=== PATIENT | female | born 1930 | race Caucasian/White ===

== ENCOUNTER 2016-12-08 14:23 | Inpatient (IN) | payer OTHER, MEDICARE ==
[~2016-12-08] VITALS: Ht 162.6 cm; Wt 55.4 kg
[2016-12-08] VITALS (8 sets, daily range): BP systolic 101–135; BP diastolic 68–97; PULSE 88–127; RESP 18; TEMP 97.7–98.3; O2SAT 93–95
[~2016-12-08 14:23] MED LIST: ASPI81TA82 PO; FERR325C PO; FLUO20CA12 PO; FLUT1INH; FURO10S PO; FURO20TA PO; GLUCTAB PO; LEVO50TA4 PO; LEVO75TA3 PO; LIOT5 PO; LOSA100T PO; LOSA100T3 PO; METF500T PO; METO25 PO; METO25TA3 PO; POTA8TAB PO; PRAV20 PO; PRAV20TA2 PO; TIOT12.9 INH; XARE15TA PO
[2016-12-08] MEDS ORDERED: SENNOSIDES 8.6 MG TAB PO PRN (15:00)
[2016-12-08] MEDS ORDERED: MAGNESIUM HYDROXIDE SUSP 30 ML CUP PO PRN (15:00)
[2016-12-08] MEDS ORDERED: BISACODYL 10 MG SUPP RECTAL PRN (15:00)
[2016-12-08] MEDS ORDERED: NALOXONE HCL 0.4 MG/ML AMP IV PUSH PRN (15:00)
[2016-12-08] MEDS ORDERED: LACTULOSE SYRUP 20 GM/30 ML CUP PO PRN (15:00)
[2016-12-08] MEDS ORDERED: ACETAMINOPHEN 325 MG TAB PO PRN (15:00)
[2016-12-08] MEDS ORDERED: SODIUM CHLORIDE 0.9% FLUSH 10 ML FLUSH IV FLUSH PRN (15:00)
--- NOTE | 2016-12-08 16:32 | HHI.HP ---
[facility] Physician Gracie Uribe Admission Diagnosis Diagnoses: Chief Complaint: Back pain, A. fib Travel History International Travel<30 Days: No Contact w/Intl Traveler <30 Da: No History of Present Illness Written by Guanaco Cruz, acting as scribe for Dr. Rowland on 12/08/16 at 16:32. This note was transcribed by scribe Guanaco Cruz PA-C. I, Dr. Ruslan Rowland personally performed the history, physical exam, and medical decision making; and confirmed the accuracy of the information in the transcribed note. Authenticated by Dr. Ruslan Rowland on 12/09/16 at 00:06. 86-year-old female with past medical history of A. fib, CHF, HLD, HTN, hypothyroidism, DM, COPD who presented with back pain. The patient states she presented for left back and leg pain. She says she has been having a dry cough for 2 weeks. She states the past 2 weeks as well she's been having sciatica. She states she is having pain in her left lower right that radiates into her left thigh and stops at her knee. The pain is exacerbated by sitting. She has been taking Tylenol 3 for pain with minimal relief. She denies any numbness, tingling, weakness of her extremities. She denies any urinary or fecal incontinence. She presented to the ED with these symptoms and was found to have A. fib with RVR and was admitted. She does follow with cardiology/ electrophysiology Dr. Tay in [place]. She failed cardioversion last year and the plan was for ablation but there are complications and this was not able to be completed. The patient denies any chest pain, shortness of breath, palpitations. He hasn't had any fever, chills. She denies any leg swelling. She has been compliant with her medications including in particular her Xarelto. Review of Systems Except as stated in HPI: all other systems reviewed are Neg Past Family Social History Past Medical History Congestive heart failure, systolic, EF 30% per patient Atrial fibrillation Diabetes mellitus, most recent A1c 6.0 per patient Hyperlipidemia Hypertension Emphysema and chronic bronchitis Hypothyroidism Past Surgical History Pacemaker/AICD placement Femur fracture repair Bilateral cataract surgery Hemorrhoidectomy Reported Medications Reported Meds & Active Scripts Active Reported Iron (Ferrous Sulfate) 325 Mg Cap 325 Mg PO DAILY Metformin (Metformin HCl) 500 Mg Tab 500 Mg PO DAILY With a meal Spiriva Respimat Inh (Tiotropium Inh) 2.5 Mcg/Act Aero 2 Puff INH DAILY 2.5 mcg = 1 inhalation Pravastatin 20 Mg Tab 20 Mg PO DAILY Metoprolol Tartrate 25 Mg Tab 25 Mg PO BID Losartan (Losartan Potassium) 100 Mg Tab 100 Mg PO DAILY Levothyroxine (Levothyroxine Sodium) 50 Mcg Tab 50 Mcg PO DAILY Potassium Chloride ER (Potassium Chloride) 8 Meq Tab 8 Meq PO BID Furosemide 20 Mg Tab 20 Mg PO BID Fluoxetine (Fluoxetine HCl) 20 Mg Capsule 20 Mg PO DAILY Xarelto (Rivaroxaban) 15 Mg Tab 15 Mg PO DAILY Allergies: Coded Allergies: simvastatin (Verified Adverse Reaction, Severe, Cramping, 12/08/16) SEVERE LEG CRAMPING SAUNDRA Inhibitors (Verified Adverse Reaction, Unknown, Cough, 12/08/16) PT STS CHRONIC PERSISTENT COUGH amiodarone (Verified Adverse Reaction, Unknown, Nausea/Vomiting, 12/08/16) VOMITING,HAIR LOSS, ELEVATED LIVER ENZYMES PER PT digoxin (Verified Adverse Reaction, Unknown, Appetite Changes(/Dec), ) LOSS OF APPETITE, SEVERE WEIGHT LOSS PER PT dronedarone (Verified Adverse Reaction, Unknown, Shortness of Breath, ) SEVERE EXACERBATION OF CHF PER PT Active Ordered Medications Current Medications Medications (Trade) Dose Ordered Sig/Eulalia Route Start Time Stop Time Status Last Admin (NS Flush) 2 ml UNSCH PRN IV FLUSH 12/08/16 15:00 (NS Flush) 2 ml BID IV FLUSH 12/08/16 21:00 (Tylenol) 650 mg Q4H PRN PO 12/08/16 15:00 (Narcan Inj) 0.4 mg UNSCH PRN IV PUSH 12/08/16 15:00 (Milk Of Magnesia Liq) 30 ml Q12H PRN PO 12/08/16 15:00 (Senokot) 17.2 mg Q12H PRN PO 12/08/16 15:00 (Dulcolax Supp) 10 mg DAILY PRN RECTAL 12/08/16 15:00 (Lactulose Liq) 30 ml DAILY PRN PO 12/08/16 15:00 (PROzac) 20 mg DAILY PO 12/09/16 09:00 (Lasix) 20 mg BID PO 12/08/16 21:00 (Synthroid) 50 mcg DAILY@0600 PO 12/09/16 06:00 (Cozaar) 100 mg DAILY PO 12/09/16 09:00 (Lopressor) 25 mg BID PO 12/08/16 21:00 (KCl) 8 meq BID PO 12/08/16 21:00 (Pravachol) 20 mg DAILY PO 12/09/16 09:00 (Xarelto) 15 mg DAILY PO 12/09/16 09:00 (Ferrous Sulfate) 325 mg DAILY PO 12/09/16 09:00 Family History Father had a heart attack at age 76 Social History Quit smoking 30 years ago One glass of wine nightly Physical Exam Physical Exam GENERAL: Well-developed well-nourished. In no acute distress. SKIN: Warm and dry. No lesions noted. HEENT: Normocephalic. Pupils equal and round. Mucous membranes pink and moist. CARDIOVASCULAR: Irregular rate and rhythm. No murmur appreciated. RESPIRATORY: No accessory muscle use. Clear to auscultation. Breath sounds equal bilaterally. GASTROINTESTINAL: Abdomen soft, non-tender, nondistended. Bowel sounds x4. MUSCULOSKELETAL: No obvious deformities. No clubbing or cyanosis. No edema. No calf swelling noted. Some right calf tenderness to palpation. NEUROLOGICAL: Awake and alert. Moves upper and lower extremities spontaneously. Normal speech. PSYCHIATRIC: Appropriate mood and affect; insight and judgment normal. Caprini VTE Risk Assessment Caprini VTE Risk Assessment: Mod/High Risk (score >= 2) Caprini Risk Assessment Model Point Value = 1 Point Value = 2 Point Value = 3 Point Value = 5 Age 41-60 Minor surgery BMI > 25 kg/m2 Swollen legs Varicose veins or History of unexplained or recurrent spontaneous Oral contraceptives or hormone replacement Sepsis (< 1 month) Serious lung disease, including pneumonia (< 1 month) Abnormal pulmonary function Acute myocardial infarction Congestive heart failure (< 1 month) History of inflammatory bowel disease Medical patient at bed rest Age 61-74 Arthroscopic surgery Major open surgery (> 45 min) Laparoscopic surgery (> 45 min) Malignancy Confined to bed (> 72 hours) Immobilizing plaster cast Central venous access Age >= 75 History of VTE Family history of VTE Factor V Leiden Prothrombin [id number] Lupus anticoagulant Anticardiolipin antibodies Elevated serum homocysteine Heparin-induced thrombocytopenia Other congenital or acquired thrombophilia Stroke (< 1 month) Elective arthroplasty Hip, pelvis, or leg fracture Acute spinal cord injury (< 1 month) Prophylaxis Regimen Total Risk Factor Score Risk Level Prophylaxis Regimen 0-1 Low Early ambulation 2 Moderate Order ONE of the following: *Sequential Compression Device (SCD) *Heparin 5000 units SQ BID 3-4 Higher Order ONE of the following medications: *Heparin 5000 units SQ TID *Enoxaparin/Lovenox 40 mg SQ daily (WT < 150 kg, CrCl > 30 mL/min) *Enoxaparin/Lovenox 30 mg SQ daily (WT < 150 kg, CrCl > 10-29 mL/min) *Enoxaparin/Lovenox 30 mg SQ BID (WT < 150 kg, CrCl > 30 mL/min) AND/OR *Sequential Compression Device (SCD) 5 or more Highest Order ONE of the following medications: *Heparin 5000 units SQ TID (Preferred with Epidurals) *Enoxaparin/Lovenox 40 mg SQ daily (WT < 150 kg, CrCl > 30 mL/min) *Enoxaparin/Lovenox 30 mg SQ daily (WT < 150 kg, CrCl > 10-29 mL/min) *Enoxaparin/Lovenox 30 mg SQ BID (WT < 150 kg, CrCl > 30 mL/min) AND *Sequential Compression Device (SCD) Assessment and Plan Assessment and Plan 86-year-old female with past medical history of A. fib, CHF, HLD, HTN, hypothyroidism, DM, COPD who presented with back pain A. fib with RVR: Heart rate currently 120's on monitor. Asymptomatic. -Resume home metoprolol -Add oral Cardizem and consider Cardizem drip if not improved -Monitor on telemetry -Continue Xarelto Sciatica: Acute on chronic. -[place] and IV morphine as needed for pain -Trial of Flexeril -Heating pad -PT consult Elevated d-dimer: Nonspecific. On anticoagulation with Xarelto. -With some calf tenderness will check lower extremity ultrasound Doppler CKD stage III: Creatinine 1.5, previously 1.56 on 12/19/14. -Currently stable. Monitor. Diabetes mellitus: -Hold home metformin -Monitor Accu-Cheks and cover with SSI if needed Chronic systolic CHF: EF 30% per patient. S/P AICD. -Continue home metoprolol, Lasix, potassium supplement Other chronic medical conditions include hypothyroidism, COPD, depression, iron deficiency, hyperlipidemia: Stable at this time and will continue home medications as indicated DVT prophylaxis: On Xarelto Discussed Condition With Patient, RN, ED staff Guanaco Cruz Dec 08, 2016 16:32 Mariana Rowland DO Dec 09, 2016 00:06
[2016-12-08] MEDS ORDERED: MORPHINE SULFATE 2 MG/ML INJ IV PUSH PRN (16:45)
[2016-12-08] MEDS ORDERED: DEXTROSE 50% IN WATER 50 ML VIAL(D50) IV PUSH PRN (16:45)
[2016-12-08] MEDS ORDERED: GLUCAGON 1 MG/ML VIAL OTHER PRN (16:45)
[2016-12-08] MEDS: INSULIN ASPART SUPPLEMENTAL SCALE SQ SCH ×2 (17:00→20:11)
[2016-12-08] MEDS ORDERED: PILL SPLITTER OTHER PRN (17:15)
[2016-12-08] MEDS: DILTIAZEM HCL 30 MG TAB PO SCH ×2 (18:19→20:05)
[2016-12-08] MEDS: ACETAMINOPHEN/HYDROcodone 325 MG/5 MG TAB PO PRN (18:19)
[2016-12-08] MEDS: CYCLOBENZAPRINE HCL 10 MG TAB PO SCH (20:05)
[2016-12-08] MEDS: FUROSEMIDE 20 MG TAB PO SCH (20:05)
[2016-12-08] MEDS: SODIUM CHLORIDE 0.9% FLUSH 10 ML FLUSH IV FLUSH SCH (20:06)
[2016-12-08] MEDS: METOPROLOL TARTRATE 25 MG TAB PO SCH (20:06)
[2016-12-08] MEDS: POTASSIUM CHLORIDE 8 MEQ CONTROLLED RELEASE TAB PO SCH (20:08)
--- NOTE | 2016-12-08 22:04 | RADRPT ---
EXAM DATE/TIME: 12/08/2016 21:03 [facility] COMPARISON: No previous studies available for comparison. INDICATIONS : Bilateral leg swelling. MEDICAL HISTORY : Congestive heart failure. Hypercholesterolemia. Hypertension. Glasses. Neck pain. Atrial fibrillation . COPD. Dyspnea. Urinary tract infection. Arthritis. Diabetes. SURGICAL HISTORY : Tonsillectomy.Pacemaker. Bilateral cataract surgery. Femur fracture repair. ENCOUNTER: Initial ACUITY: 1 day PAIN SCORE: 3/10 LOCATION: Bilateral legs. TECHNIQUE: Venous ultrasound of the left and right leg was performed from the inguinal ligament to the proximal calf. Real-time, color Doppler and spectral tracing, compression and augmentation techniques were us ed. FINDINGS: RIGHT LEG: There is normal compressibility of the deep venous system from the inguinal region to the proximal ca lf. No echogenic clot is seen in the lumen of the common femoral, femoral, popliteal, and posterior tibial veins. There is a normal response of the venous system to proximal and distal augmentation an d respiration. LEFT LEG: There is normal compressibility of the deep venous system from the inguinal region to the proximal ca lf. No echogenic clot is seen in the lumen of the common femoral, femoral, popliteal, and posterior tibial veins. There is a normal response of the venous system to proximal and distal augmentation an d respiration. CONCLUSION: Normal examination. Oliverio Bryan MD on December 08, 2016 at 22:02 Board Certified Radiologist. This report was verified electronically.
[2016-12-09] VITALS (27 sets, daily range): BP systolic 95–116; BP diastolic 64–68; PULSE 72–105; RESP 16–18; TEMP 98–98.4; O2SAT 91–99
[2016-12-09] MEDS: ACETAMINOPHEN/HYDROcodone 325 MG/5 MG TAB PO PRN ×3 (04:50→23:08)
[2016-12-09] MEDS: LEVOTHYROXINE SODIUM 50 MCG TAB PO SCH (04:50)
[2016-12-09] MEDS: INSULIN ASPART SUPPLEMENTAL SCALE SQ SCH ×4 (08:00→21:00)
[2016-12-09] MEDS ORDERED: NON-FORMULARY DRUG (Ferrous Sulfate (Iron) 325 MG) PO SCH (09:00)
[2016-12-09] MEDS: RIVAROXABAN 15 MG TAB PO SCH (09:12)
[2016-12-09] MEDS: FERROUS SULFATE 325 MG (65 MG ELEMENTAL IRON) TAB PO SCH (09:12)
[2016-12-09] MEDS: SODIUM CHLORIDE 0.9% FLUSH 10 ML FLUSH IV FLUSH SCH ×2 (09:12→23:11)
[2016-12-09] MEDS: FUROSEMIDE 20 MG TAB PO SCH ×2 (09:13→23:10)
[2016-12-09] MEDS: POTASSIUM CHLORIDE 8 MEQ CONTROLLED RELEASE TAB PO SCH ×2 (09:13→23:09)
[2016-12-09] MEDS: PRAVASTATIN SOD 20 MG TAB PO SCH (09:13)
[2016-12-09] MEDS: LOSARTAN 50 MG TAB PO SCH (09:14)
[2016-12-09] MEDS: DILTIAZEM HCL 30 MG TAB PO SCH ×4 (09:14→23:11)
[2016-12-09] MEDS: METOPROLOL TARTRATE 25 MG TAB PO SCH ×2 (09:14→23:09)
[2016-12-09] MEDS: FLUoxetine HCL 20 MG CAP PO SCH (09:14)
[2016-12-09] MEDS: CYCLOBENZAPRINE HCL 10 MG TAB PO SCH ×2 (09:15→23:06)
[2016-12-09] MEDS ORDERED: INFLUENZA VIRUS VACCINE (QUADRIVALENT) 0.5 ML SYR IM ONE (10:00)
--- NOTE | 2016-12-09 12:16 | HHI.PR ---
Subjective Remarks Follow-up for atrial fibrillation, low back pain radiating to the left lower extremity. Patient is currently doing well, resting in bed. Denies any chest pain, shortness of breath, fever or chills. She still has low back pain. Objective Vitals Vital Signs Date Time Temp Pulse Resp B/P (MAP) Pulse Ox O2 Delivery O2 Flow Rate FiO2 12/09/16 11:00 79 12/09/16 10:00 92 12/09/16 09:00 84 12/09/16 08:46 91 17 116/68 (84) 97 12/09/16 08:00 80 12/09/16 08:00 Room Air 12/09/16 07:18 90 12/09/16 06:00 80 12/09/16 05:00 83 12/09/16 04:00 98.0 81 18 105/66 (79) 95 12/09/16 04:00 81 12/09/16 04:00 Room Air 12/09/16 03:00 87 12/09/16 02:00 92 12/09/16 01:00 87 12/09/16 00:00 98.3 90 18 109/67 (81) 95 12/09/16 00:00 90 12/09/16 00:00 Room Air 12/08/16 23:00 88 12/08/16 22:00 111 12/08/16 21:00 98 12/08/16 20:00 97.9 124 18 101/68 (79) 93 12/08/16 20:00 Room Air 12/08/16 20:00 124 12/08/16 18:22 97.7 123 18 126/86 (99) 95 12/08/16 18:00 127 12/08/16 17:00 118 12/08/16 16:30 98.3 115 18 135/97 (110) 95 I/O 12/08/16 12/08/16 12/08/16 12/09/16 12/09/16 12/09/16 07:00 15:00 23:00 07:00 15:00 23:00 Intake Total 480 ml Output Total 700 ml Balance -220 ml Intake Oral 480 ml Output Urine Total 700 ml # Bowel Movements 0 Imaging Last Impressions Lower Extremity Ultrasound 12/08/16 0000 Signed Impressions: Service Date/Time: Thursday, December 08, 2016 21:03 - CONCLUSION: Normal examination. Oliverio Bryan MD Objective Remarks GENERAL: Alert, oriented 3, NAD. SKIN: Warm and dry. HEAD: Normocephalic. EYES: No scleral icterus. No injection or drainage. NECK: Supple, trachea midline. No JVD or lymphadenopathy. CARDIOVASCULAR: Regular rate and rhythm without murmurs, gallops, or rubs. RESPIRATORY: Breath sounds equal bilaterally. No accessory muscle use. GASTROINTESTINAL: Abdomen soft, non-tender, nondistended. MUSCULOSKELETAL: No cyanosis, or edema. BACK: Nontender without obvious deformity. No CVA tenderness. Procedures None A/P Problem List: (1) Sciatica of left side ICD Code: M54.32 - Sciatica, left side (2) Atrial fibrillation ICD Code: I48.91 - Unspecified atrial fibrillation (3) Chronic systolic CHF (congestive heart failure) ICD Code: I50.22 - Chronic systolic (congestive) heart failure (4) Diabetes mellitus ICD Code: E11.9 - Type 2 diabetes mellitus without complications (5) CKD (chronic kidney disease) stage 3, GFR 30-59 ml/min ICD Code: N18.3 - Chronic kidney disease, stage 3 (moderate) Assessment and Plan 86-year-old female with past medical history of A. fib, CHF, HLD, HTN, hypothyroidism, DM, COPD who presented with back pain A. fib with RVR -Resume home metoprolol -Added oral Cardizem and consider Cardizem drip if not improved -Will switch to long acting Cardizem tomorrow morning. -Monitor on telemetry. Heart rate better controlled today. -Continue Xarelto Sciatica: Acute on chronic. -[place] and IV morphine as needed for pain -Trial of Flexeril -Heating pad -PT consult Elevated d-dimer: Nonspecific. On anticoagulation with Xarelto. -Patient had some calf tenderness. Lower extremity ultrasound negative for DVT. CKD stage III: Creatinine 1.5, previously 1.56 on 12/19/14. Diabetes mellitus: -Hold home metformin -Monitor Accu-Cheks and cover with SSI if needed Chronic systolic CHF: EF 30% per patient. S/P AICD. -Continue home metoprolol, Lasix, potassium supplement Full code. Xarelto. Discharge plan: Depending on PT input, will consider discharging patient on to SNF vs. Home with home health. Mariana Rowland DO Dec 09, 2016 12:16 pm
[2016-12-09] MEDS ORDERED: WALKER WHEELS/F1 MIS (23:34)
[2016-12-10] VITALS (18 sets, daily range): BP systolic 100–131; BP diastolic 58–88; PULSE 80–97; RESP 17–21; TEMP 97.4–98.6; O2SAT 90–97
[2016-12-10] MEDS: LEVOTHYROXINE SODIUM 50 MCG TAB PO SCH (05:49)
[2016-12-10] MEDS: ACETAMINOPHEN/HYDROcodone 325 MG/5 MG TAB PO PRN (05:50)
[2016-12-10] MEDS: INSULIN ASPART SUPPLEMENTAL SCALE SQ SCH ×5 (09:08→21:00)
[2016-12-10] MEDS: LOSARTAN 50 MG TAB PO SCH (09:09)
[2016-12-10] MEDS: DILTIAZEM-CD 120 MG CAP ER PO SCH (09:09)
[2016-12-10] MEDS: FERROUS SULFATE 325 MG (65 MG ELEMENTAL IRON) TAB PO SCH (09:09)
[2016-12-10] MEDS: RIVAROXABAN 15 MG TAB PO SCH (09:09)
[2016-12-10] MEDS: METOPROLOL TARTRATE 25 MG TAB PO SCH ×2 (09:09→22:57)
[2016-12-10] MEDS: FLUoxetine HCL 20 MG CAP PO SCH (09:09)
[2016-12-10] MEDS: FUROSEMIDE 20 MG TAB PO SCH ×2 (09:09→22:58)
[2016-12-10] MEDS: PRAVASTATIN SOD 20 MG TAB PO SCH (09:09)
[2016-12-10] MEDS: SODIUM CHLORIDE 0.9% FLUSH 10 ML FLUSH IV FLUSH SCH ×2 (09:10→21:00)
[2016-12-10] MEDS: POTASSIUM CHLORIDE 8 MEQ CONTROLLED RELEASE TAB PO SCH ×2 (09:10→22:58)
[2016-12-10] MEDS: CYCLOBENZAPRINE HCL 10 MG TAB PO SCH ×2 (09:10→22:58)
--- NOTE | 2016-12-10 10:02 | HHI.PR ---
Subjective Remarks Follow-up for atrial fibrillation, low back pain radiating to the left lower extremity. Patient is doing well. She has persistent sciatica pain. Would like to consider getting steroid injection. Objective Vitals Vital Signs Date Time Temp Pulse Resp B/P (MAP) Pulse Ox O2 Delivery O2 Flow Rate FiO2 12/10/16 08:00 80 12/10/16 07:40 Room Air 12/10/16 07:40 18 12/10/16 07:00 80 12/10/16 04:36 98.6 80 17 105/67 (80) 90 12/10/16 03:00 80 12/10/16 02:00 80 12/10/16 01:00 80 12/10/16 00:00 98.4 92 17 122/88 (99) 91 12/10/16 00:00 84 12/09/16 23:00 96 12/09/16 22:00 80 12/09/16 21:00 80 12/09/16 20:20 91 Room Air 12/09/16 20:16 98.4 105 17 95/64 (74) 91 12/09/16 20:00 82 12/09/16 19:00 72 12/09/16 18:00 80 12/09/16 17:00 84 12/09/16 16:02 98.3 78 17 109/65 (80) 96 12/09/16 16:00 82 12/09/16 15:00 80 12/09/16 14:00 82 12/09/16 13:00 84 12/09/16 12:00 82 12/09/16 12:00 98.2 79 16 104/67 (79) 99 12/09/16 11:00 79 I/O 12/09/16 12/09/16 12/09/16 12/10/16 12/10/16 12/10/16 07:00 15:00 23:00 07:00 15:00 23:00 Intake Total 480 ml 700 ml 720 ml Output Total 700 ml 1000 ml 680 ml Balance -220 ml -300 ml 40 ml Intake Oral 480 ml 700 ml 720 ml Output Urine Total 700 ml 1000 ml 680 ml # Bowel Movements 0 0 Imaging Last Impressions Lower Extremity Ultrasound 12/08/16 0000 Signed Impressions: Service Date/Time: Thursday, December 08, 2016 21:03 - CONCLUSION: Normal examination. Oliverio Bryan MD Objective Remarks GENERAL: Alert, oriented 3, NAD. SKIN: Warm and dry. HEAD: Normocephalic. EYES: No scleral icterus. No injection or drainage. NECK: Supple, trachea midline. No JVD or lymphadenopathy. CARDIOVASCULAR: Regular rate and rhythm without murmurs, gallops, or rubs. RESPIRATORY: Breath sounds equal bilaterally. No accessory muscle use. GASTROINTESTINAL: Abdomen soft, non-tender, nondistended. MUSCULOSKELETAL: No cyanosis, or edema. BACK: Nontender without obvious deformity. No CVA tenderness. Procedures None A/P Problem List: (1) Sciatica of left side ICD Code: M54.32 - Sciatica, left side (2) Atrial fibrillation ICD Code: I48.91 - Unspecified atrial fibrillation (3) Chronic systolic CHF (congestive heart failure) ICD Code: I50.22 - Chronic systolic (congestive) heart failure (4) Diabetes mellitus ICD Code: E11.9 - Type 2 diabetes mellitus without complications (5) CKD (chronic kidney disease) stage 3, GFR 30-59 ml/min ICD Code: N18.3 - Chronic kidney disease, stage 3 (moderate) Assessment and Plan 86-year-old female with past medical history of A. fib, CHF, HLD, HTN, hypothyroidism, DM, COPD who presented with back pain A. fib with RVR -Resume home metoprolol 25mg BID. -Continue Cardizem 120mg Qday. -Continue Xarelto Sciatica: Acute on chronic. -[place] and IV morphine as needed for pain -Continue Flexeril -Heating pad -PT consult --> home with home health. -Will advise patient to do outpatient epidural injection. She will have to hold Xarelto for 24 hours. Elevated d-dimer: Nonspecific. On anticoagulation with Xarelto. -Patient had some calf tenderness. Lower extremity ultrasound negative for DVT. CKD stage III: Creatinine 1.5, previously 1.56 on 12/19/14. Diabetes mellitus: -Hold home metformin -Monitor Accu-Cheks and cover with SSI if needed Chronic systolic CHF: EF 30% per patient. S/P AICD. -Continue home metoprolol, Lasix, potassium supplement Full code. Xarelto. Discharge plan: Will plan on discharging patient in the AM. Problem Qualifiers (1) Atrial fibrillation: Qualified Codes: I48.2 - Chronic atrial fibrillation (2) Diabetes mellitus: Qualified Codes: E11.9 - Type 2 diabetes mellitus without complications Mariana Rowland DO Dec 10, 2016 10:02 am
--- NOTE | 2016-12-10 22:51 | RADRPT ---
EXAM DATE/TIME: 12/10/2016 20:37 [facility] COMPARISON: No previous studies available for comparison. INDICATIONS : Lower back pain for two weeks. RADIATION DOSE: 35.85 CTDIvol (mGy) MEDICAL HISTORY : Chronic obstructive pulmonary disease. Congestive heart failure. diabetes SURGICAL HISTORY : Pacemaker. left hip surgery ENCOUNTER: Initial ACUITY: 2 weeks PAIN SCALE: 7/10 LOCATION: Bilateral lower back TECHNIQUE: Volumetric scanning of the lumbar spine was performed. Multiplanar reconstructions in the sagittal, coronal and oblique axial planes were performed. Using automated exposure control and adjustment of the mA and/or kV according to patient size, radiation dose was kept as low as reasonably achievable t o obtain optimal diagnostic quality images. DICOM format image data is available electronically for review and comparison. FINDINGS: Bilateral sacral insufficiency fractures are present. The lumbar spine is notable for mild right convex scoliotic curvature and slight lordotic accentuatio n. Slight anterolisthesis of L5 relative to S1. No evidence of lumbar spine fracture or bony destruct anamaria change. The lumbar canal is satisfactory throughout. There are degenerative arthritic changes in the posterior facet joints of the low lumbar spine and lumbosacral junction. No evidence of paraspina l mass or hematoma. CONCLUSION: Sacral insufficiency fractures. Lumbar spine appearance is nonacute Pieter Jain MD on December 10, 2016 at 22:47 Board Certified Radiologist. This report was verified electronically.
[2016-12-11] VITALS (9 sets, daily range): BP systolic 97–144; BP diastolic 54–76; PULSE 79–110; RESP 16–22; TEMP 97.2–99.1; O2SAT 92–95
[2016-12-11] MEDS: LEVOTHYROXINE SODIUM 50 MCG TAB PO SCH (06:46)
[2016-12-11] MEDS: INSULIN ASPART SUPPLEMENTAL SCALE SQ SCH ×4 (08:00→20:34)
[2016-12-11] MEDS: SODIUM CHLORIDE 0.9% FLUSH 10 ML FLUSH IV FLUSH SCH ×2 (09:00→20:36)
[2016-12-11] MEDS: PRAVASTATIN SOD 20 MG TAB PO SCH (09:40)
[2016-12-11] MEDS: POTASSIUM CHLORIDE 8 MEQ CONTROLLED RELEASE TAB PO SCH ×2 (09:40→20:36)
[2016-12-11] MEDS: FERROUS SULFATE 325 MG (65 MG ELEMENTAL IRON) TAB PO SCH (09:41)
[2016-12-11] MEDS: FLUoxetine HCL 20 MG CAP PO SCH (09:41)
[2016-12-11] MEDS: DILTIAZEM-CD 120 MG CAP ER PO SCH (09:41)
[2016-12-11] MEDS: LOSARTAN 50 MG TAB PO SCH (09:41)
[2016-12-11] MEDS: FUROSEMIDE 20 MG TAB PO SCH ×2 (09:42→20:36)
[2016-12-11] MEDS: METOPROLOL TARTRATE 25 MG TAB PO SCH ×2 (09:42→20:35)
[2016-12-11] MEDS: CYCLOBENZAPRINE HCL 10 MG TAB PO SCH ×2 (09:42→20:36)
--- NOTE | 2016-12-11 10:11 | HHI.PR ---
Subjective Remarks Remarks Follow-up for atrial fibrillation, sacral insufficiency fractures. Patient is currently doing well. She complains of lower back pain and left leg pain. No fever, chills. Objective Vitals Vital Signs Date Time Temp Pulse Resp B/P (MAP) Pulse Ox O2 Delivery O2 Flow Rate FiO2 12/11/16 08:00 97.9 83 18 112/67 (82) 92 12/11/16 04:00 98.3 92 18 109/66 (80) 93 12/11/16 00:53 Room Air 12/11/16 00:00 99.1 88 22 144/76 (98) 93 12/10/16 20:00 83 12/10/16 20:00 97.4 91 21 131/58 (82) 95 12/10/16 18:50 97.4 97 19 131/80 (97) 92 12/10/16 17:34 97.7 82 20 116/73 (87) 97 12/10/16 16:08 81 12/10/16 15:00 80 12/10/16 14:08 81 12/10/16 13:09 80 12/10/16 12:00 88 12/10/16 12:00 98.2 80 18 100/60 (73) 94 12/10/16 11:02 86 I/O 12/10/16 12/10/16 12/10/16 12/11/16 12/11/16 12/11/16 07:00 15:00 23:00 07:00 15:00 23:00 Intake Total 720 ml 240 ml Output Total 680 ml 650 ml Balance 40 ml -410 ml Intake Oral 720 ml 240 ml Output Urine Total 680 ml 650 ml # Voids 4 # Bowel Movements 0 0 Imaging Last Impressions Lumbar Spine CT 12/10/16 0000 Signed Impressions: Service Date/Time: Saturday, December 10, 2016 20:37 - CONCLUSION: Sacral insufficiency fractures. Lumbar spine appearance is nonacute Pieter Jain MD Lower Extremity Ultrasound 12/08/16 0000 Signed Impressions: Service Date/Time: Thursday, December 08, 2016 21:03 - CONCLUSION: Normal examination. Oliverio Bryan MD Objective Remarks GENERAL: Alert, oriented 3, NAD. SKIN: Warm and dry. HEAD: Normocephalic. EYES: No scleral icterus. No injection or drainage. NECK: Supple, trachea midline. No JVD or lymphadenopathy. CARDIOVASCULAR: Regular rate and rhythm without murmurs, gallops, or rubs. RESPIRATORY: Breath sounds equal bilaterally. No accessory muscle use. GASTROINTESTINAL: Abdomen soft, non-tender, nondistended. MUSCULOSKELETAL: No cyanosis, or edema. BACK: Nontender without obvious deformity. No CVA tenderness. Procedures None A/P Problem List: (1) Sciatica of left side ICD Code: M54.32 - Sciatica, left side (2) Atrial fibrillation ICD Code: I48.91 - Unspecified atrial fibrillation (3) Chronic systolic CHF (congestive heart failure) ICD Code: I50.22 - Chronic systolic (congestive) heart failure (4) Diabetes mellitus ICD Code: E11.9 - Type 2 diabetes mellitus without complications (5) CKD (chronic kidney disease) stage 3, GFR 30-59 ml/min ICD Code: N18.3 - Chronic kidney disease, stage 3 (moderate) Assessment and Plan 86-year-old female with past medical history of A. fib, CHF, HLD, HTN, hypothyroidism, DM, COPD who presented with back pain A. fib with RVR -Resume home metoprolol 25mg BID. -Continue Cardizem 120mg Qday. -Continue Xarelto Sacral insufficiency fracture, bilateral - Discussed with radiology. We will place an Invasive radiology consult for Sacroplasty. - Start Calcium and Vitamin D supplementation. - Continue PT. Elevated d-dimer: Nonspecific. On anticoagulation with Xarelto. -Patient had some calf tenderness. Lower extremity ultrasound negative for DVT. CKD stage III: Creatinine 1.5, previously 1.56 on 12/19/14. Diabetes mellitus: -Hold home metformin -Monitor Accu-Cheks and cover with SSI if needed Chronic systolic CHF: EF 30% per patient. S/P AICD. -Continue home metoprolol, Lasix, potassium supplement Full code. Xarelto - currently on hold. Discharge plan: Sacroplasty pending. Discussed with patient's granddaughter. Problem Qualifiers (1) Atrial fibrillation: Qualified Codes: I48.2 - Chronic atrial fibrillation (2) Diabetes mellitus: Qualified Codes: E11.9 - Type 2 diabetes mellitus without complications Mariana Rowland DO Dec 11, 2016 10:11 am
[2016-12-11] MEDS: CHOLECALCIFEROL (VIT D3) 400 UNIT TAB PO SCH (13:13)
[2016-12-11] MEDS: CALCIUM CARBONATE 1.25 GM (CA 500 MG) TAB PO SCH ×2 (13:13→20:35)
[2016-12-11] MEDS ORDERED: RESP: IPRATROPIUM 0.5 MG/2.5 ML NEB NEB PRN (21:30)
[2016-12-11] MEDS: RESP: IPRATROPIUM 0.5 MG/2.5 ML NEB NEB SCH (22:00)
--- NOTE | 2016-12-11 22:01 | RADRPT ---
EXAM DATE/TIME: 12/11/2016 22:32 [facility] COMPARISON: CHEST SINGLE AP, December 08, 2016, 12:56. INDICATIONS : Shortness of breath. MEDICAL HISTORY : Cardiovascular disease. SURGICAL HISTORY : Pacemaker. ENCOUNTER: Subsequent ACUITY: 3 days PAIN SCORE: 0/10 LOCATION: Bilateral chest FINDINGS: There are atherosclerotic calcifications of the aorta due to chronic atherosclerotic disease. Mild le ft lung base atelectasis and/or infiltrate is seen. There is no appreciable pleural effusion for tech nique. Heart and mediastinum are unremarkable. Left subclavian transvenous pacer wires are present w ith tips in the right atrium and right ventricle. CONCLUSION: Mild left lung base atelectasis and/or infiltrate is seen. Rl Green MD on December 11, 2016 at 21:59 Board Certified Radiologist. This report was verified electronically.
[2016-12-12] VITALS (15 sets, daily range): BP systolic 97–122; BP diastolic 53–72; PULSE 79–112; RESP 12–20; TEMP 97.3–97.9; O2SAT 92–98
[2016-12-12] MEDS: RESP: IPRATROPIUM 0.5 MG/2.5 ML NEB NEB SCH ×4 (03:46→22:00)
[2016-12-12] MEDS: LEVOTHYROXINE SODIUM 50 MCG TAB PO SCH (05:24)
[2016-12-12] MEDS: INSULIN ASPART SUPPLEMENTAL SCALE SQ SCH ×4 (08:00→20:43)
[2016-12-12] MEDS: CYCLOBENZAPRINE HCL 10 MG TAB PO SCH ×2 (09:00→20:34)
[2016-12-12] MEDS: CALCIUM CARBONATE 1.25 GM (CA 500 MG) TAB PO SCH ×2 (09:18→20:31)
[2016-12-12] MEDS: CHOLECALCIFEROL (VIT D3) 400 UNIT TAB PO SCH (09:18)
[2016-12-12] MEDS: METOPROLOL TARTRATE 25 MG TAB PO SCH ×2 (09:19→20:33)
[2016-12-12] MEDS: LOSARTAN 50 MG TAB PO SCH (09:19)
[2016-12-12] MEDS: POTASSIUM CHLORIDE 8 MEQ CONTROLLED RELEASE TAB PO SCH ×2 (09:19→20:32)
[2016-12-12] MEDS: DILTIAZEM-CD 120 MG CAP ER PO SCH (09:19)
[2016-12-12] MEDS: PRAVASTATIN SOD 20 MG TAB PO SCH (09:19)
[2016-12-12] MEDS: FUROSEMIDE 20 MG TAB PO SCH ×2 (09:20→20:32)
[2016-12-12] MEDS: FLUoxetine HCL 20 MG CAP PO SCH (09:21)
[2016-12-12] MEDS: FERROUS SULFATE 325 MG (65 MG ELEMENTAL IRON) TAB PO SCH (09:21)
[2016-12-12] MEDS: TIOTROPIUM BROMIDE 18 MCG INH INH SCH (11:38)
[2016-12-12] MEDS: SODIUM CHLORIDE 0.9% FLUSH 10 ML FLUSH IV FLUSH SCH ×2 (11:41→20:32)
[2016-12-12] MEDS ORDERED: BUPIVACAINE HCL PF 0.75% 30 ML VIAL ONE (13:53)
[2016-12-12] MEDS ORDERED: MIDAZOLAM HCL 2 MG/2 ML VIAL ONE ×2 (14:05)
[2016-12-12] MEDS ORDERED: ceFAZolin 2 GM PREMIX 50 ML ONE (14:05)
--- NOTE | 2016-12-12 15:14 | PD.RAD ---
Post Procedure Progress Note Pre Procedure Diagnosis: (1) Bilateral sacral insufficiency fracture Post Procedure Diagnosis: (1) Bilateral sacral insufficiency fracture Procedure Date: Dec 12, 2016 Supervising Radiologist: Hao Alfonso JR Proceduralist/Assist: Dana Dawkins RT(R), RT Mikala(R)() Anesthesia: Conscious Sedation Plan of Activity Patient to Unit: ROPU Patient Condition: Good See PACS Report for procedural detail/treatment Spinal Procedure Vertobroplasty S1 Findings: Bilateral sacral insufficiency fractures with lifestyle limiting pain. Failed medical management. Successful bilateral sacroplasty. Plan F/U with IR in 2-3 weeks. Call sooner if any problems. Jr. Kaden,aHo Wolf MD Dec 12, 2016 15:14
[2016-12-12] MEDS ORDERED: HYDR-3516 PO (15:38)
[2016-12-12] MEDS ORDERED: CARD120C4 PO (15:38)
--- NOTE | 2016-12-12 17:05 | HHI.FF ---
Face to Face Verification Diagnosis: (1) CKD (chronic kidney disease) stage 3, GFR 30-59 ml/min (2) Chronic systolic CHF (congestive heart failure) (3) Atrial fibrillation (4) Diabetes mellitus (5) Sciatica of left side (6) Bilateral sacral insufficiency fracture Physical Therapy Order: Evaluate and Treat Occupational Therapy Order: Evaluate and Treat Home Health Nursing Order: Medical education Nursing assessment with vital signs I have seen patient Olga Zhang on 12/12/16. My clinical findings support the need for the requested home health care services because: Limited ability to care for self Need for psychosocial assistance I certify that my clinical findings support that this patient is homebound because: Unsteady gait/balance Unsafe to leave home unassisted Sofya Heard MD Dec 12, 2016 17:05
--- NOTE | 2016-12-12 17:08 | HHI.PR ---
Subjective Remarks just came from vertebroplasty , felling very tierd , no cp , sob Objective Vitals Vital Signs Date Time Temp Pulse Resp B/P (MAP) Pulse Ox O2 Delivery O2 Flow Rate FiO2 12/12/16 16:30 81 20 121/71 (88) 97 12/12/16 16:30 97 Nasal Cannula 2.00 12/12/16 16:00 97 Nasal Cannula 2.00 12/12/16 16:00 82 20 120/67 (84) 97 12/12/16 15:35 97 Nasal Cannula 2.00 12/12/16 15:35 82 18 117/67 (84) 97 12/12/16 15:20 97.8 92 12 120/67 (84) 92 12/12/16 12:00 97.4 91 16 117/64 (81) 93 12/12/16 09:28 94 21 12/12/16 09:00 Room Air 12/12/16 08:01 87 12/12/16 08:00 97.3 102 18 118/59 (78) 92 12/12/16 04:23 98 12/12/16 04:00 97.5 112 19 118/72 (87) 95 12/12/16 00:00 97.9 79 19 120/68 (85) 97 12/11/16 22:01 94 12/11/16 21:30 Room Air 12/11/16 20:10 97.3 106 20 110/65 (80) 94 12/11/16 20:00 97.4 110 22 113/65 (81) 94 I/O 12/11/16 12/11/16 12/11/16 12/12/16 12/12/16 12/12/16 07:00 15:00 23:00 07:00 15:00 23:00 Intake Total 240 ml 360 ml 0 ml Output Total 650 ml 500 ml 600 ml Balance -410 ml -140 ml -600 ml Intake Oral 240 ml 360 ml 0 ml Output Urine Total 650 ml 500 ml 600 ml # Bowel Movements 0 0 0 Objective Remarks GENERAL: This is a well-nourished, well-developed patient, in no apparent distress. CARDIOVASCULAR: Regular rate and rhythm without murmurs, gallops, or rubs. RESPIRATORY: Clear to auscultation. Breath sounds equal bilaterally. No wheezes , rales, or rhonchi. GASTROINTESTINAL: Abdomen soft, non-tender, nondistended. Normal active bowel sounds MUSCULOSKELETAL: Extremities without clubbing, cyanosis, or edema. NEURO: Alert & Oriented x4 to person, place, time, situation. Moves all ext x4 Procedures None A/P Problem List: (1) Sciatica of left side ICD Code: M54.32 - Sciatica, left side (2) Atrial fibrillation ICD Code: I48.91 - Unspecified atrial fibrillation (3) Chronic systolic CHF (congestive heart failure) ICD Code: I50.22 - Chronic systolic (congestive) heart failure (4) Diabetes mellitus ICD Code: E11.9 - Type 2 diabetes mellitus without complications (5) CKD (chronic kidney disease) stage 3, GFR 30-59 ml/min ICD Code: N18.3 - Chronic kidney disease, stage 3 (moderate) Assessment and Plan 12/12: s/p vertebroplasty , feeling very tired now , will dc in am home with home health care 86-year-old female with past medical history of A. fib, CHF, HLD, HTN, hypothyroidism, DM, COPD who presented with back pain A. fib with RVR -Resume home metoprolol 25mg BID. -Continue Cardizem 120mg Qday. -Continue Xarelto Sacral insufficiency fracture, bilateral - Discussed with radiology. s/p vertebroplasty - Start Calcium and Vitamin D supplementation. - Continue PT. Elevated d-dimer: Nonspecific. On anticoagulation with Xarelto. -Patient had some calf tenderness. Lower extremity ultrasound negative for DVT. CKD stage III: Creatinine 1.5, previously 1.56 on 12/19/14. Diabetes mellitus: -Hold home metformin -Monitor Accu-Cheks and cover with SSI if needed Chronic systolic CHF: EF 30% per patient. S/P AICD. -Continue home metoprolol, Lasix, potassium supplement Full code. Xarelto - currently on hold. Problem Qualifiers (1) Atrial fibrillation: Qualified Codes: I48.2 - Chronic atrial fibrillation (2) Diabetes mellitus: Qualified Codes: E11.9 - Type 2 diabetes mellitus without complications Sofya Heard MD Dec 12, 2016 17:08
--- NOTE | 2016-12-12 18:45 | HHI.DS ---
Discharge Summary Admission Date Dec 08, 2016 at 15:57 Discharge Date: Dec 13, 2016 Admitting Diagnosis (1) Sciatica of left side ICD Code: M54.32 - Sciatica, left side (2) Atrial fibrillation ICD Code: I48.91 - Unspecified atrial fibrillation (3) Chronic systolic CHF (congestive heart failure) ICD Code: I50.22 - Chronic systolic (congestive) heart failure (4) Diabetes mellitus ICD Code: E11.9 - Type 2 diabetes mellitus without complications (5) CKD (chronic kidney disease) stage 3, GFR 30-59 ml/min ICD Code: N18.3 - Chronic kidney disease, stage 3 (moderate) Procedures Vertebroplasty Brief History - From Admission Written by Guanaco Cruz, acting as scribe for Dr. Rowland on 12/08/16 at 16:32. This note was transcribed by blank Cruz PA-C. I, Dr. Ruslan Rowland personally performed the history, physical exam, and medical decision making; and confirmed the accuracy of the information in the transcribed note. Authenticated by Dr. Ruslan Rowland on 12/09/16 at 00:06. 86-year-old female with past medical history of A. fib, CHF, HLD, HTN, hypothyroidism, DM, COPD who presented with back pain. The patient states she presented for left back and leg pain. She says she has been having a dry cough for 2 weeks. She states the past 2 weeks as well she's been having sciatica. She states she is having pain in her left lower right that radiates into her left thigh and stops at her knee. The pain is exacerbated by sitting. She has been taking Tylenol 3 for pain with minimal relief. She denies any numbness, tingling, weakness of her extremities. She denies any urinary or fecal incontinence. She presented to the ED with these symptoms and was found to have A. fib with RVR and was admitted. She does follow with cardiology/ electrophysiology Dr. Tay in [place]. She failed cardioversion last year and the plan was for ablation but there are complications and this was not able to be completed. The patient denies any chest pain, shortness of breath, palpitations. He hasn't had any fever, chills. She denies any leg swelling. She has been compliant with her medications including in particular her Xarelto. PE at Discharge GENERAL: This is a well-nourished, well-developed patient, in no apparent distress. CARDIOVASCULAR: Regular rate and rhythm without murmurs, gallops, or rubs. RESPIRATORY: Clear to auscultation. Breath sounds equal bilaterally. No wheezes , rales, or rhonchi. GASTROINTESTINAL: Abdomen soft, non-tender, nondistended. Normal active bowel sounds MUSCULOSKELETAL: Extremities without clubbing, cyanosis, or edema. NEURO: Alert & Oriented x4 to person, place, time, situation. Moves all ext x4 Hospital Course Patient admitted for A. fib with RVR placed on metoprolol and Cardizem, continue Xarelto, she had a sacral bilateral fracture status post vertebroplasty , diabetic management and education provided PT recommended home health rehabilitation [id number] encounter performed with the patient on discharge day, as well as physical exam, summary of hospitalization course and postdischarge plan has been D/W the patient. D/W nurse D/W correctional case records supervisor. Discharge medications reviewed and printed and signed, post discharge follow up visit with PCP and other specialist as well as Brief hospital course and discharge summary has been placed. Pt Condition on Discharge: Stable Discharge Disposition: Disch w/ Home Health Serv Discharge Time: > 30 minutes Discharge Instructions DIET: Follow Instructions for: Heart Healthy Diet, Diabetic Diet Activities you can perform: See Additionl Instruction Other Activity Instructions: per PT Sofya Heard MD Dec 12, 2016 18:45
[2016-12-13] VITALS (8 sets, daily range): BP systolic 97–116; BP diastolic 52–64; PULSE 80–102; RESP 16–20; TEMP 97.4–97.9; O2SAT 91–98
[2016-12-13] MEDS: RESP: IPRATROPIUM 0.5 MG/2.5 ML NEB NEB SCH ×3 (04:34→15:52)
[2016-12-13] MEDS: LEVOTHYROXINE SODIUM 50 MCG TAB PO SCH (05:58)
[2016-12-13] MEDS: INSULIN ASPART SUPPLEMENTAL SCALE SQ SCH ×2 (08:00→12:00)
[2016-12-13] MEDS: FLUoxetine HCL 20 MG CAP PO SCH (08:51)
[2016-12-13] MEDS: FERROUS SULFATE 325 MG (65 MG ELEMENTAL IRON) TAB PO SCH (08:51)
[2016-12-13] MEDS: DILTIAZEM-CD 120 MG CAP ER PO SCH (08:52)
[2016-12-13] MEDS: POTASSIUM CHLORIDE 8 MEQ CONTROLLED RELEASE TAB PO SCH (08:52)
[2016-12-13] MEDS: CYCLOBENZAPRINE HCL 10 MG TAB PO SCH (08:52)
[2016-12-13] MEDS: SODIUM CHLORIDE 0.9% FLUSH 10 ML FLUSH IV FLUSH SCH (08:53)
[2016-12-13] MEDS: PRAVASTATIN SOD 20 MG TAB PO SCH (08:53)
[2016-12-13] MEDS: LOSARTAN 50 MG TAB PO SCH (08:53)
[2016-12-13] MEDS: FUROSEMIDE 20 MG TAB PO SCH (08:53)
[2016-12-13] MEDS: CALCIUM CARBONATE 1.25 GM (CA 500 MG) TAB PO SCH (08:53)
[2016-12-13] MEDS: METOPROLOL TARTRATE 25 MG TAB PO SCH (08:53)
--- NOTE | 2016-12-13 09:09 | RADRPT ---
EXAM DATE/TIME: 12/12/2016 13:46 [facility] COMPARISON: No previous studies available for comparison. INDICATIONS : Patient with a sacral insufficiency fractures bilaterally. Ly style limiting pain. Failed medical man agement.. MEDICAL HISTORY : Congestive heart failure Atrial fibrillation Diabetes mellitus Hyperlipidemia Hypertension Emphysema/Chronic bronchitis Hypothyroidism SURGICAL HISTORY : Pacemaker/AICD placement Femur fracture repair Bilateral cataract surgery Hemorrhoidectomy ENCOUNTER: Initial ACUITY: 1 week PAIN SCORE: 5/10 LOCATION: Lower back. FLUORO TIME: 10.7 minutes IMAGE SERIES: 2 SEDATION TIME: 30 minutes LEVEL: Sacral MEDICATION(S): 1.) 2 mg midazolam (Versed) IV 2.) 100 mcg fentanyl (Sublimaze) IV DEVICE: 1. 5 cc AVAMax bone cement PROCEDURE : 1. Fluoroscopically-guided vertebroplasty. 2 . Conscious sedation with continuous EKG and oximetry monitoring. The risks, benefits and alternatives to the procedure were explained and verbal and written consent w as obtained. The site was prepped in sterile fashion. Full sterile technique was used, including ca p, mask, sterile gloves and gown and a large sterile sheet. Hand hygiene and 2% chlorhexidine and/or betadine/alcohol prep was utilized per protocol for cutaneous antisepsis. The skin and subcutaneous tissues were infiltrated with local anesthetic solution. With fluoroscopic guidance and utilizing a short axis approach the bilateral sacral ala were accessed with 13 gauge needles. The prescribed cement volume was placed. Post procedure images demonstrate cement confined to the sacral ala bilaterally. Conscious sedation was performed with the prescribed dosages and duration as above in the presence of an independent trained radiology nurse to assist in the monitoring of the patient. EKG and oximetry remained stable throughout the procedure. The patient tolerated the procedure well and there were no complications. The patient was sent to post anesthesia recovery in stable condition. CONCLUSION: Uncomplicated bilateral sacroplasty. Hao Alfonso Jr., MD on December 13, 2016 at 8:47 Board Certified Radiologist. This report was verified electronically.
[2016-12-13] MEDS: CHOLECALCIFEROL (VIT D3) 400 UNIT TAB PO SCH (09:29)
[2016-12-13] MEDS: TIOTROPIUM BROMIDE 18 MCG INH INH SCH (09:29)
--- NOTE | 2016-12-13 10:24 | HHI.DCPOC ---
Discharge Care Plan Diagnosis: (1) Bilateral sacral insufficiency fracture (2) Sciatica of left side (3) Diabetes mellitus (4) Atrial fibrillation (5) Chronic systolic CHF (congestive heart failure) Your Health Problems Are: Difficulty with ADL Leg Swelling Fluid/Lung Overload Shortness of Breath Goals to Promote Your Health * To prevent worsening of your condition and complications * To maintain your health at the optimal level Directions to Meet Your Goals Take your medications as prescribed Follow your dietary instruction Follow activity as directed Keep your appointments as scheduled Take your immunizations and boosters as scheduled If your symptoms worsen call your PCP, if no PCP go to Urgent Care Center or Emergency Room Smoking is Dangerous to Your Health. Avoid second hand smoke Call the 24-hour hour crisis hotline for domestic abuse at Kaycee Quiroga Dec 13, 2016 10:24 am
--- NOTE | 2016-12-13 18:13 | HHI.PR ---
Subjective Remarks Doing well stable for discharge Objective Vitals Vital Signs Date Time Temp Pulse Resp B/P (MAP) Pulse Ox O2 Delivery O2 Flow Rate FiO2 12/13/16 12:00 97.7 81 18 105/59 (74) 93 12/13/16 09:40 91 21 12/13/16 08:00 96 Room Air 12/13/16 08:00 97.4 81 18 97/52 (67) 97 Manual Cuff/Auscultation 12/13/16 08:00 102 12/13/16 07:00 97.7 80 20 115/60 (78) 98 12/13/16 04:18 97.9 82 20 116/64 (81) 98 Automatic Cuff 12/13/16 00:54 98/58 (71) 12/13/16 00:00 97.8 88 20 98 12/12/16 22:03 96 Nasal Cannula 2.00 12/12/16 20:47 Nasal Cannula 2.00 12/12/16 19:40 97.5 80 20 97/53 (68) 97 12/12/16 19:30 89 I/O 12/12/16 12/12/16 12/12/16 12/13/16 12/13/16 12/13/16 07:00 15:00 23:00 07:00 15:00 23:00 Intake Total 0 ml 0 ml 240 ml Output Total 600 ml 500 ml Balance -600 ml 0 ml -260 ml Intake Oral 0 ml 0 ml 240 ml Output Urine Total 600 ml 500 ml # Voids 1 # Bowel Movements 0 0 1 Objective Remarks GENERAL: This is a well-nourished, well-developed patient, in no apparent distress. CARDIOVASCULAR: Regular rate and rhythm without murmurs, gallops, or rubs. RESPIRATORY: Clear to auscultation. Breath sounds equal bilaterally. No wheezes , rales, or rhonchi. GASTROINTESTINAL: Abdomen soft, non-tender, nondistended. Normal active bowel sounds MUSCULOSKELETAL: Extremities without clubbing, cyanosis, or edema. NEURO: Alert & Oriented x4 to person, place, time, situation. Moves all ext x4 Procedures Vertebroplasty A/P Problem List: (1) Sciatica of left side ICD Code: M54.32 - Sciatica, left side (2) Atrial fibrillation ICD Code: I48.91 - Unspecified atrial fibrillation (3) Chronic systolic CHF (congestive heart failure) ICD Code: I50.22 - Chronic systolic (congestive) heart failure (4) Diabetes mellitus ICD Code: E11.9 - Type 2 diabetes mellitus without complications (5) CKD (chronic kidney disease) stage 3, GFR 30-59 ml/min ICD Code: N18.3 - Chronic kidney disease, stage 3 (moderate) Assessment and Plan 12/12: s/p vertebroplasty , feeling very tired now , will dc in am home with home health care 12/13: Awaiting placement to rehabilitation possibly today 86-year-old female with past medical history of A. fib, CHF, HLD, HTN, hypothyroidism, DM, COPD who presented with back pain A. fib with RVR -Resume home metoprolol 25mg BID. -Continue Cardizem 120mg Qday. -Continue Xarelto Sacral insufficiency fracture, bilateral - Discussed with radiology. s/p vertebroplasty - Start Calcium and Vitamin D supplementation. - Continue PT. Elevated d-dimer: Nonspecific. On anticoagulation with Xarelto. -Patient had some calf tenderness. Lower extremity ultrasound negative for DVT. CKD stage III: Creatinine 1.5, previously 1.56 on 12/19/14. Diabetes mellitus: -Hold home metformin -Monitor Accu-Cheks and cover with SSI if needed Chronic systolic CHF: EF 30% per patient. S/P AICD. -Continue home metoprolol, Lasix, potassium supplement Full code. Xarelto - currently on hold. Problem Qualifiers (1) Atrial fibrillation: Qualified Codes: I48.2 - Chronic atrial fibrillation (2) Diabetes mellitus: Qualified Codes: E11.9 - Type 2 diabetes mellitus without complications Sofya Heard MD Dec 13, 2016 18:13
== END 2016-12-13 18:58 | disposition home health service (06) | DRG 516 ==
LOC: NEDDLT 15:47 → HCIN 15:57 → N04B 12-10 18:34
PROVIDERS: ADMIT Hospitalist; ATTEND Hospitalist
PROC: 0QU13JZ Supplement Sacrum with Synthetic Substitute, Percutaneous Approach (ICD-10-PCS; principal; 2016-12-13)
DX: M84.48XA Pathological fracture, other site, initial encounter for fracture (principal); I13.0 Hypertensive heart and chronic kidney disease with heart failure and stage 1 through stage 4 chronic kidney disease, or unspecified chronic kidney disease; E11.22 Type 2 diabetes mellitus with diabetic chronic kidney disease; I50.22 Chronic systolic (congestive) heart failure; I48.2 Chronic atrial fibrillation; N18.3 Chronic kidney disease, stage 3 (moderate); R79.1 Abnormal coagulation profile; J44.9 Chronic obstructive pulmonary disease, unspecified; E78.5 Hyperlipidemia, unspecified; E61.1 Iron deficiency; E03.9 Hypothyroidism, unspecified; F32.9 Major depressive disorder, single episode, unspecified; Z23 Encounter for immunization; Z79.01 Long term (current) use of anticoagulants; Z79.84 Long term (current) use of oral hypoglycemic drugs; Z87.891 Personal history of nicotine dependence; Z95.810 Presence of automatic (implantable) cardiac defibrillator
CPT/HCPCS: 22511; 22512; 71010; 72131; 80048; 81001; 82550; 82948; 83735; 83880; 84484; 85025; 85379; 85610; 85730; 87070; 87077; 87186; 87205; 90686; 93005; 93970; 94640; 94664; 99152; 99153; J0690; J1815; J2250; J3010; J7644; Q2038

== ENCOUNTER → 2017-05-13 | Outpatient (CLI) | payer OTHER ==
[~2017-05-13] MED LIST changes: -ASPI81TA82 PO; +CARD120C4 PO; -FLUT1INH; -FURO10S PO; -GLUCTAB PO; +HYDR-3516 PO; -LEVO75TA3 PO; -LIOT5 PO; -LOSA100T3 PO; -METO25 PO; -PRAV20 PO; +WALKER WHEELS/F1 MIS
== END ==
LOC: HRSP 10:30
PROVIDERS: ATTEND Internal Medicine
DX: J44.9 Chronic obstructive pulmonary disease, unspecified (principal)
CPT/HCPCS: 36600; 82805; 94060; 94618; 94726; 94729